=== PATIENT | female | born 1980 | race Caucasian/White ===

== ENCOUNTER → 2016-07-14 | Day surgery (SDC) | payer BC, OTHER ==
[~2016-07-14] VITALS: Ht 160 cm; Wt 66.8 kg
[2016-07-14] VITALS (13 sets, daily range): BP systolic 95–114; BP diastolic 46–65; PULSE 92–106; RESP 12–21; Ht 160 cm; Wt 66.8 kg
[~2016-07-14] MED LIST: CEFAZOLIN 1 GM INJ ONE; DEXAMETHASONE 4 MG/ML 1 ML INJ ONE; EPHEDrine SULFATE 50 MG/5 ML SYG ONE; FAMOTIDINE 20 MG INJ ONE; FENTAnyl 50 MCG/ML VIAL ONE; HYDROmorphONE (0.2 MG/ML) 10ML SYG IV PRN; KETOROLAC 30 MG INJ ONE; MEPERIDINE 25 MG INJ IV PRN; MIDAZOLAM 1 MG/ML 2 ML INJ ONE; ONDANSETRON 4 MG INJ IV PRN; ONDANSETRON 4 MG INJ ONE; PHENYLephrine (100 MCG/ML) 5ML SYG ONE; PROPOFOL 20 ML ONE; STRONG IODINE 14 ML SOLUTION TOP ONE
--- NOTE | 2016-07-14 10:10 | PD.PPDC ---
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
--- NOTE | 2016-07-14 13:32 | OPR ---
DATE OF OPERATION: 07/14/2016 PREOPERATIVE DIAGNOSIS: Cervical dysplasia, mild. POSTOPERATIVE DIAGNOSES: See pathological report. NAME OF PROCEDURE: Cold conization of the cervix and D and C. ANESTHESIA: General. ANESTHESIOLOGIST: Dr. Carvajal SURGEON: Kezia Orta MD ESTIMATED BLOOD LOSS: Rather high at 180. SPONGE COUNT: Correct. NEEDLE COUNT: Correct, 7 of them used. PROCEDURE: Under proper induction of general anesthesia, the patient was placed in the dorsal litho demetrius position. Perineal area and vagina wall was prepped and draped in usual aseptic manner. Biman ual examination, uterus slightly increased in size. There was no palpable adnexal pathology. The s urface was smooth. Weighted speculum introduced and the cervix is kind of disfigured, the left side was shorter than the right side. She has had 3 normal vaginal deliveries. Anterior lip of the cer vix was grasped with a single tooth tenaculum and hemostatic ligature placed on the 3 and 9 o'clock with difficulty on the 3 o'clock because of the distortion of the cervix. Multiple times we changed the needle and the needle holders, and because of multiple puncture sites which is where the bleedi ng was from. Using 11 blade and cutting the cervix in a circular fashion from the lower lip and the cone shape of the cervix was removed en bloc after the Lugol solution was applied on the cervical mucosa, which w as it was rather wide including all the area, possibly, and cervical cone was removed from the field . Then endocervical curettage was done with obtaining scant tissue and cavity was sounded, which wa s approximately 9 cm in depth and the os dilated slightly and the endos material curettage was done and the samplings from 4 quadrants, with obtaining scanty tissue which was sent to pathology. Stur mdorf suture was placed, starting from the lower lip and upper lip to invert the defect. After the procedure was done, still the patient was continuously bleeding, mostly from the left lateral side i n the lower lips. An additional suture was placed on the left angle, but still running more than it is supposed to be. At this point, the suture was cut and all were removed again and then restarted at the lower lip by using Sturmdorf suture with #1 chromic catgut. After a couple of suture, I nanette bled the suture of the Sturmdorf and this bleeder was controlled. Procedure was completed. All of the suture was cut and the instruments were removed from the operative field. The patient withstood the procedure well and was sent to recovery room in stable condition. Dictated By: KEZIA HERNANDEZ/JENNIFER Conf#: [id number] DID#: [id number]
== END | disposition home or self-care (01) ==
LOC: SDS 05:31
PROVIDERS: ATTEND Obstetrics & Gynecology
DX: N87.0 Mild cervical dysplasia (principal)
CPT/HCPCS: 57520; 84703; 88305; 88309; J0690; J1100; J2250; J2370; J2405; J3010; Z7512; Z7610; J1885